=== PATIENT | female | born 1940 | race Two or more races ===

== ENCOUNTER 2021-07-01 00:17 | Inpatient (IN) | payer SELFPAY ==
[~2021-07-01] VITALS: Ht 162.6 cm; Wt 64.5 kg
[2021-07-01 00:37] LABS: BASO # 0.1 x10^3/uL (0.0-0.2); BASO % 1 % (0-3); EOS # 0.2 x10^3/uL (0.0-0.7); EOS % 2 % (0-3); HEMATOCRIT 40.2 % (36.0-47.0); HEMOGLOBIN 13.3 g/dL (12.0-15.5); LYMPH # 4.3 x10^3/uL (1.0-4.8); LYMPH % 41 % (24-48); MEAN CORPUSCULAR HEMOGLOBIN 27 pg (25-35); MEAN CORPUSCULAR HGB CONC 33 g/dL (31-37); MEAN CORPUSCULAR VOLUME 81 fL (79-100); MONO # 0.5 x10^3/uL (0.0-1.1); MONO % 5 % (0-9); NEUT # 5.3 x10^3/uL (1.8-7.7); NEUT % 51 % (31-73); PLATELET COUNT 419 x10^3/uL (140-400); RED BLOOD COUNT 4.99 x10^6/uL (3.50-5.40); RED CELL DISTRIBUTION WIDTH 13.8 % (11.5-14.5); WHITE BLOOD COUNT 10.4 x10^3/uL (4.0-11.0)
[2021-07-01 00:50] LABS: CALCIUM 8.8 mg/dL (8.5-10.1); CREATININE 0.7 mg/dL (0.6-1.0); GFR 80.9; POTASSIUM 3.7 mmol/L (3.5-5.1)
--- NOTE | 2021-07-01 00:52 | RAD ---
XR CHEST 1V 07/01/2021 12:27 AM INDICATION: Chest pain COMPARISON: None available TECHNIQUE: Portable frontal view of the chest is provided. FINDINGS: The cardiomediastinal silhouette is within normal limits. Lungs are clear. Mild chronic interstitial changes. There are no significant pleural effusions. There is no pulmonary vascular congestion. No pneumothora x. No suspicious osseous abnormality. IMPRESSION: There is no acute cardiopulmonary process. Mild chronic interstitial changes. Electronically signed by: Marion Arellano MD (07/01/2021 12:50 AM) TUYET
--- NOTE | 2021-07-01 00:54 | PHYS DOC ---
Past Medical History Past Medical History: Diabetes-Type II, High Cholesterol Past Surgical History: No Surgical History Smoking Status: Never Smoker Alcohol Use: None General Adult EDM: Chief Complaint: CHEST PAIN HPI: HPI: Patient is a 80 year old female who present to ER for evaluation of chest pain that radiated to her neck area started at 9 PM tonight. Patient also complained of some nausea, no headache, no cough, no fever, no trouble breathing. Patient is vaccinated for COVID-19 already. Patient denies any history of high blood pressure, no history of heart problem. Patient has history of high cholesterol and diabetic. Review of Systems: Review of Systems: Constitutional: Denies fever or chills. [] Eyes: Denies change in visual acuity. [] HENT: Denies nasal congestion or sore throat. [] Respiratory: Denies cough or shortness of breath. [] Cardiovascular: Positive for chest pain, no edema GI: Denies abdominal pain, nausea, vomiting, bloody stools or diarrhea. [] : Denies dysuria. [] Musculoskeletal: Denies back pain or joint pain. [] Integument: Denies rash. [] Neurologic: Denies headache, focal weakness or sensory changes. [] Endocrine: Denies polyuria or polydipsia. [] Lymphatic: Denies swollen glands. [] Psychiatric: Denies depression or anxiety. [] Heart Score: C/O Chest Pain: Yes HEART Score for Chest Pain: HEART Score for Chest Pain Response (Comments) Value History Moderately Suspicious 1 ECG Normal 0 Age > 65 2 Risk Factors 1 or 2 Risk Factors 1 Troponin < Normal Limit 0 Total 4 Risk Factors: Risk Factors: DM, Current or recent (<one month) smoker, HTN, HLP, family history of CAD, obesity. Risk Scores: Score 0 - 3: 2.5% MACE over next 6 weeks - Discharge Home Score 4 - 6: 20.3% MACE over next 6 weeks - Admit for Clinical Observation Score 7 - 10: 72.7% MACE over next 6 weeks - Early Invasive Strategies Physical Exam: PE: Constitutional: Well developed, well nourished, no acute distress, non-toxic appearance. [] HENT: Normocephalic, atraumatic, bilateral external ears normal, oropharynx moist, no oral exudates, nose normal. [] Eyes: PERRLA, EOMI, conjunctiva normal, no discharge. [] Neck: Normal range of motion, no tenderness, supple, no stridor. [] Cardiovascular:Heart rate regular rhythm, no murmur [] Lungs & Thorax: Bilateral breath sounds clear to auscultation [] Abdomen: Bowel sounds normal, soft, no tenderness, no masses, no pulsatile masses. [] Skin: Warm, dry, no erythema, no rash. [] Back: No tenderness, no CVA tenderness. [] Extremities: No tenderness, no cyanosis, no clubbing, ROM intact, no edema. [] Neurologic: Alert and oriented X 3, normal motor function, normal sensory function, no focal deficits noted. [] Psychologic: Affect normal, judgement normal, mood normal. [] Current Patient Data: Labs: Laboratory Tests Test 07/01/21 00:25 White Blood Count 10.4 x10^3/uL (4.0-11.0) Red Blood Count 4.99 x10^6/uL (3.50-5.40) Hemoglobin 13.3 g/dL (12.0-15.5) Hematocrit 40.2 % (36.0-47.0) Mean Corpuscular Volume 81 fL (79-100) Mean Corpuscular Hemoglobin 27 pg (25-35) Mean Corpuscular Hemoglobin Concent 33 g/dL (31-37) Red Cell Distribution Width 13.8 % (11.5-14.5) Platelet Count 419 x10^3/uL (140-400) H Neutrophils (%) (Auto) 51 % (31-73) Lymphocytes (%) (Auto) 41 % (24-48) Monocytes (%) (Auto) 5 % (0-9) Eosinophils (%) (Auto) 2 % (0-3) Basophils (%) (Auto) 1 % (0-3) Neutrophils # (Auto) 5.3 x10^3/uL (1.8-7.7) Lymphocytes # (Auto) 4.3 x10^3/uL (1.0-4.8) Monocytes # (Auto) 0.5 x10^3/uL (0.0-1.1) Eosinophils # (Auto) 0.2 x10^3/uL (0.0-0.7) Basophils # (Auto) 0.1 x10^3/uL (0.0-0.2) Laboratory Tests 07/01/21 00:25 EKG: EKG: EKG was done at 0026, rate of 71 bpm, sinus rhythm, no ST segment elevation, normal axis Radiology/Procedures: Radiology/Procedures: [] Course & Med Decision Making: Course & Med Decision Making Pertinent Labs and Imaging studies reviewed. (See chart for details) Patient is a 80-year-old female who present to ER due to chest pain and elevated blood pressure. Patient had no history of hypertension. Her EKG cardiac enzymes came back normal so far. Due to her risk factor patient will be admitted to hospital for further evaluation and treatment Dragon Disclaimer: Dragon Disclaimer: This electronic medical record was generated, in whole or in part, using a voice recognition dictation system. Departure Departure Impression: Primary Impression: Chest pain Additional Impression: Hypertension Disposition: ADMITTED INPATIENT Admitting Physician: KENIA (DR. [place]) Condition: IMPROVED Referrals: NO PCP (PCP) AMILCAR BERNABE DO Jul 01, 2021 00:53
[2021-07-01 00:55] LABS: ALBUMIN 3.7 g/dL (3.4-5.0); ALBUMIN/GLOBULIN RATIO 0.9 (1.0-1.7); MAGNESIUM 2.2 mg/dL (1.8-2.4); TOTAL BILIRUBIN 0.3 mg/dL (0.2-1.0); TOTAL PROTEIN 7.9 g/dL (6.4-8.2)
[2021-07-01] MEDS ORDERED: ONDANSETRON PF 4 MG/2 ML VIAL. IVP ONE (01:00)
[2021-07-01] MEDS ORDERED: METOPROLOL IV PUSH 5 MG/5 ML VIAL. IVP ONE (01:00)
[2021-07-01] MEDS ORDERED: ONDANSETRON PF 4 MG/2 ML VIAL. IVP PRN ×2 (02:45→08:45)
[2021-07-01 02:52] LABS: BILIRUBIN,URINE NEGATIVE (NEG); CLARITY,URINE CLOUDY; COLOR,URINE YELLOW; NITRITE,URINE NEGATIVE (NEG); PROTEIN,URINE NEGATIVE (NEG-TRACE); UROBILINOGEN,URINE 0.2 mg/dL (0.2 mg/dL)
[2021-07-01 03:00] LABS: AMORPHOUS SEDIMENT,UR PRESENT /HPF; BACTERIA,URINE 0 /HPF (0-FEW); RBC,URINE 0 /HPF (0-2)
--- NOTE | 2021-07-01 04:06 | EKG ---
[facility] [address] [place] [address] Test Date: 2021-07-01 Test Time: 00:26:55 Pat Name: MISA STALEY Department: Room: Gender: F Operations Professional: : 1940 Requested By: AMILCAR BERNABE Order Number: [id number] Reading MD: Yossi Amanda Measurements Intervals [place] Rate: 71 P: 58 SD: 156 QRS: 62 QRSD: 94 T: 36 QT: 380 QTc: 418 Interpretive Statements SINUS RHYTHM MILD NON SPECIFIC ST-T WAVE CHANGES Electronically Signed On 07-07-2021 10:35:04 EDGE BEADER by Yossi Amanda
[2021-07-01] MEDS ORDERED: METF500T16 PO (08:12)
--- NOTE | 2021-07-01 08:39 | PDOC1 ---
History and Physical Date of Service: DOS: DATE: 07/01/21 TIME: 08:36 Chief Complaint: Chief Complain: Chest pain. History of Present Illness: HPI: History obtained from discussion with the ED physician and chart review 80 year old female who present to ER for evaluation of chest pain that radiated to her neck area started at 9 PM tonight. Patient also complained of some nausea, no headache, no cough, no fever, no trouble breathing. Patient is vaccinated for COVID-19 already. Patient denies any history of high blood p ressure, no history of heart problem. Patient has history of high cholesterol and diabetic. Past Medical/Surgical History: PMH/PSH: Past Medical History: Diabetes-Type II, High Cholesterol Past Surgical History: No Surgical History Allergies: Allergies: Coded Allergies: No Known Drug Allergies (Unverified , 07/01/21) Family History: Family History: Reviewed with no relevant findings Social History: Social History: Smoking Status: Never Smoker Alcohol Use: None Current Medications: Current Medications Current Medications Ondansetron HCl (Zofran) 4 mg 1X ONCE IVP Last administered on 07/01/21at 01:19; Start 07/01/21 at 01:00; Stop 07/01/21 at 01:04; Status DC Metoprolol Tartrate (Lopressor Vial) 5 mg 1X ONCE IVP Last administered on 07/01/21at 01:19; Start 07/01/21 at 01:00; Stop 07/01/21 at 01:04; Status DC Ondansetron HCl (Zofran) 4 mg PRN Q8HRS PRN IVP NAUSEA/VOMITING; Start 07/01/21 at 02:45; Stop 07/02/21 at 02:44 Active Scripts Active Reported Metformin Hcl 500 Mg Tablet 500 Mg PO BIDWMEALS ROS: Review of Systems Review of System REVIEW OF SYSTEMS: GENERAL: Denies weakness SKIN: No bruising, hair changes or rashes. EYES: No blurred, double or loss of vision. NOSE AND THROAT: No history of nosebleeds, hoarseness or sore throat. HEART: Positive for chest pain LUNGS: Denies cough, hemoptysis, wheezing or shortness of breath. GASTROINTESTINAL: Denies changes in appetite, nausea, vomiting, diarrhea or constipation. GENITOURINARY: No history of frequency, urgency, hesitancy or nocturia. NEUROLOGIC: Denies history of numbness, tingling, or tremor. PSYCHIATRIC: No history of panic, anxiety or depression. ENDOCRINE: No history of heat or cold intolerance, polyuria or polydipsia. EXTREMITIES: Denies joint pain, pain on walking or stiffness. Physical Exam: Vital Signs: Vital Signs Date Time Temp Pulse Resp B/P (MAP) Pulse Ox O2 Delivery O2 Flow Rate FiO2 07/01/21 07:25 72 16 164/72 (102) 97 Room Air 07/01/21 00:24 98.6 98.6 Physcial Exam: General: Well developed, well nourished, no acute distress, well appearing HEENT: Pupils equally round and reactive to light, EOMI, no discharge, normal conjunctiva Neck: Supple, no nuchal rigidity, no JVD, trachea midline, no tenderness Cardiac: RRR, no murmurs, no gallops, no rubs Chest/Lungs: CTAB, no wheeze, no rhonchi, no crackles Abdomen: soft, non-distended, no guarding, no peritoneal signs, non-tender Back: No tenderness Extremities: no edema, pulses intact, non-tender,capillary refill <3 sec bilateral upper and lower extremities, Neuro: Alert and oriented x 4, no focal deficits, normal speech Labs: Labs: Laboratory Tests Test 07/01/21 00:25 07/01/21 02:46 07/01/21 03:44 07/01/21 06:35 White Blood Count 10.4 x10^3/uL (4.0-11.0) Red Blood Count 4.99 x10^6/uL (3.50-5.40) Hemoglobin 13.3 g/dL (12.0-15.5) Hematocrit 40.2 % (36.0-47.0) Mean Corpuscular Volume 81 fL (79-100) Mean Corpuscular Hemoglobin 27 pg (25-35) Mean Corpuscular Hemoglobin Concent 33 g/dL (31-37) Red Cell Distribution Width 13.8 % (11.5-14.5) Platelet Count 419 x10^3/uL (140-400) Neutrophils (%) (Auto) 51 % (31-73) Lymphocytes (%) (Auto) 41 % (24-48) Monocytes (%) (Auto) 5 % (0-9) Eosinophils (%) (Auto) 2 % (0-3) Basophils (%) (Auto) 1 % (0-3) Neutrophils # (Auto) 5.3 x10^3/uL (1.8-7.7) Lymphocytes # (Auto) 4.3 x10^3/uL (1.0-4.8) Monocytes # (Auto) 0.5 x10^3/uL (0.0-1.1) Eosinophils # (Auto) 0.2 x10^3/uL (0.0-0.7) Basophils # (Auto) 0.1 x10^3/uL (0.0-0.2) Sodium Level 138 mmol/L (136-145) Potassium Level 3.7 mmol/L (3.5-5.1) Chloride Level 99 mmol/L (98-107) Carbon Dioxide Level 30 mmol/L (21-32) Anion Gap 9 (6-14) Blood Urea Nitrogen 12 mg/dL (7-20) Creatinine 0.7 mg/dL (0.6-1.0) Estimated GFR (Cockcroft-Gault) 80.9 BUN/Creatinine Ratio 17 (6-20) Glucose Level 144 mg/dL (70-99) Calcium Level 8.8 mg/dL (8.5-10.1) Magnesium Level 2.2 mg/dL (1.8-2.4) Total Bilirubin 0.3 mg/dL (0.2-1.0) Aspartate Amino Transf (AST/SGOT) 15 U/L (15-37) Alanine Aminotransferase (ALT/SGPT) 32 U/L (14-59) Alkaline Phosphatase 91 U/L (46-116) Troponin I High Sensitivity 10 ng/L (4-50) 9 ng/L (4-50) 11 ng/L (4-50) KT-Zbw-X-Type Natriuretic Peptide 214 pg/mL (0-449) Total Protein 7.9 g/dL (6.4-8.2) Albumin 3.7 g/dL (3.4-5.0) Albumin/Globulin Ratio 0.9 (1.0-1.7) Lipase 71 U/L (73-393) Urine Collection Type Void Urine Color Yellow Urine Clarity Cloudy Urine pH 8.0 (<5.0-8.0) Urine Specific [place] 1.010 (1.000-1.030) Urine Protein Negative mg/dL (NEG-TRACE) Urine Glucose (UA) Negative mg/dL (NEG) Urine Ketones (Stick) Negative mg/dL (NEG) Urine Blood Negative (NEG) Urine Nitrite Negative (NEG) Urine Bilirubin Negative (NEG) Urine Urobilinogen Dipstick 0.2 mg/dL (0.2 mg/dL) Urine Leukocyte Esterase Small (NEG) Urine RBC 0 /HPF (0-2) Urine WBC 1-4 /HPF (0-4) Urine Squamous Epithelial Cells Few /LPF Urine Amorphous Sediment Present /HPF Urine Bacteria 0 /HPF (0-FEW) Urine Mucus Slight /LPF Laboratory Tests Test 07/01/21 00:25 07/01/21 02:46 07/01/21 03:44 07/01/21 06:35 White Blood Count 10.4 x10^3/uL (4.0-11.0) Red Blood Count 4.99 x10^6/uL (3.50-5.40) Hemoglobin 13.3 g/dL (12.0-15.5) Hematocrit 40.2 % (36.0-47.0) Mean Corpuscular Volume 81 fL (79-100) Mean Corpuscular Hemoglobin 27 pg (25-35) Mean Corpuscular Hemoglobin Concent 33 g/dL (31-37) Red Cell Distribution Width 13.8 % (11.5-14.5) Platelet Count 419 x10^3/uL (140-400) Neutrophils (%) (Auto) 51 % (31-73) Lymphocytes (%) (Auto) 41 % (24-48) Monocytes (%) (Auto) 5 % (0-9) Eosinophils (%) (Auto) 2 % (0-3) Basophils (%) (Auto) 1 % (0-3) Neutrophils # (Auto) 5.3 x10^3/uL (1.8-7.7) Lymphocytes # (Auto) 4.3 x10^3/uL (1.0-4.8) Monocytes # (Auto) 0.5 x10^3/uL (0.0-1.1) Eosinophils # (Auto) 0.2 x10^3/uL (0.0-0.7) Basophils # (Auto) 0.1 x10^3/uL (0.0-0.2) Sodium Level 138 mmol/L (136-145) Potassium Level 3.7 mmol/L (3.5-5.1) Chloride Level 99 mmol/L (98-107) Carbon Dioxide Level 30 mmol/L (21-32) Anion Gap 9 (6-14) Blood Urea Nitrogen 12 mg/dL (7-20) Creatinine 0.7 mg/dL (0.6-1.0) Estimated GFR (Cockcroft-Gault) 80.9 BUN/Creatinine Ratio 17 (6-20) Glucose Level 144 mg/dL (70-99) Calcium Level 8.8 mg/dL (8.5-10.1) Magnesium Level 2.2 mg/dL (1.8-2.4) Total Bilirubin 0.3 mg/dL (0.2-1.0) Aspartate Amino Transf (AST/SGOT) 15 U/L (15-37) Alanine Aminotransferase (ALT/SGPT) 32 U/L (14-59) Alkaline Phosphatase 91 U/L (46-116) Troponin I High Sensitivity 10 ng/L (4-50) 9 ng/L (4-50) 11 ng/L (4-50) KK-Rys-K-Type Natriuretic Peptide 214 pg/mL (0-449) Total Protein 7.9 g/dL (6.4-8.2) Albumin 3.7 g/dL (3.4-5.0) Albumin/Globulin Ratio 0.9 (1.0-1.7) Lipase 71 U/L (73-393) Urine Collection Type Void Urine Color Yellow Urine Clarity Cloudy Urine pH 8.0 (<5.0-8.0) Urine Specific [place] 1.010 (1.000-1.030) Urine Protein Negative mg/dL (NEG-TRACE) Urine Glucose (UA) Negative mg/dL (NEG) Urine Ketones (Stick) Negative mg/dL (NEG) Urine Blood Negative (NEG) Urine Nitrite Negative (NEG) Urine Bilirubin Negative (NEG) Urine Urobilinogen Dipstick 0.2 mg/dL (0.2 mg/dL) Urine Leukocyte Esterase Small (NEG) Urine RBC 0 /HPF (0-2) Urine WBC 1-4 /HPF (0-4) Urine Squamous Epithelial Cells Few /LPF Urine Amorphous Sediment Present /HPF Urine Bacteria 0 /HPF (0-FEW) Urine Mucus Slight /LPF Images: Images PROCEDURE: PORTABLE CHEST 1V XR CHEST 1V 07/01/2021 12:27 AM INDICATION: Chest pain COMPARISON: None available TECHNIQUE: Portable frontal view of the chest is provided. FINDINGS: The cardiomediastinal silhouette is within normal limits. Lungs are clear. Mild chronic interstitial changes. There are no significant pleural effusions. There is no pulmonary vascular congestion. No pneumothorax. No suspicious osseous abnormality. IMPRESSION: There is no acute cardiopulmonary process. Mild chronic interstitial changes. Assessment/Plan Assessment/Plan Chest pain concerning for unstable angina/NSTEMI Hypertensive urgency History of diabetes mellitus type 2 History of dyslipidemia EKG showing EKG was done at 0026, rate of 71 bpm, sinus rhythm, no ST segment elevation, normal axis Troponin negative x3 Continue aspirin, consider Plavix if intermediate risk will defer this to cardiology Cardiology consulted for predischarge stress testing or left heart cath Continue nitroglycerin as needed for pain Continue beta-jessenia if blood pressures allow Continue high intensity statins IV morphine as needed Consider Lovenox Maintain O2 sats between 88 to 95% Trend troponins Repeat EKG in the a.m. Continue telemetry monitoring Monitor for electrolyte abnormalities Avoid NSAIDs We will start patient on lisinopril, HCTZ In addition to my E/M visit, advance care planning done with A total time of 20 minutes was spent from 8:00 to 820 face to face in discussion regarding the patient's goals of care, CODE STATUS. Justifications for Admission Other Justification FAREED PONCE MD Jul 01, 2021 08:39
[2021-07-01] MEDS ORDERED: PROCHLORPERAZINE 10 MG/2 ML VIAL. IV PRN (08:45)
[2021-07-01] MEDS ORDERED: ACETAMINOPHEN 325 MG TABLET. PO PRN (08:45)
[2021-07-01] MEDS ORDERED: ZOLPIDEM 5 MG TABLET. PO PRN (08:45)
[2021-07-01] MEDS ORDERED: DEXTROSE 50% 25 GM / 50ML DISP.SYRIN. IV PRN (08:45)
[2021-07-01] MEDS ORDERED: LORazepam 0.5 MG TABLET PO PRN (08:45)
[2021-07-01] MEDS ORDERED: DOCUSATE SODIUM 100 MG CAPSULE. PO PRN (08:45)
[2021-07-01] MEDS ORDERED: SENNOSIDES 8.6 MG TABLET PO PRN (08:45)
[2021-07-01 08:56] LABS: CHOLESTEROL/HDL RATIO 2.7
[2021-07-01] MEDS ORDERED: ENOXAPARIN 40 MG/0.4 ML SYRINGE. SQ SCH (09:00)
[2021-07-01] MEDS ORDERED: LIDO:MAALOX 1:1 20 ML SINGLE DOSE. PO PRN (09:15)
--- NOTE | 2021-07-01 09:53 | PDOC2 ---
PARAG BLAS SHIPPER/RECEIVER 07/01/21 0953: CARDIAC CONSULT DATE OF CONSULT Date of Consult DATE: 07/01/21 TIME: 09:39 REASON FOR CONSULT Reason for Consult: Chest pain, HTN REFERRING PHYSICIAN Referring Physician: Aiden SOURCE Source: Chart review, Patient HISTORY OF PRESENT ILLNESS HISTORY OF PRESENT ILLNESS This is a pleasant 80 yo female admitted for complains of constipation and high blood ressure. She was at her PCPs office yesterday complaining of abdominal pain and constipation and was noted with high BP with SBP>180. She has been having heartburn and complains of epigastric tenderness. No PARADA or exertional chest pain and no changes to her functional status.She does have occasional palpitations otherwise no dizziness. She has had nausea and her epigastric tenderness is easily reproducible with palpation. Her BP is better. No complains of chest pain or SOA. She is vaccinated for covid-19. No hx of VTE, CAD, arrhythmia. PAST MEDICAL HISTORY Cardiovascular: Hyperlipidemia Pulmonary: No pertinent hx CENTRAL NERVOUS SYSTEM: Other (No pertinent history) GI: Irritable bowel disease Heme/Onc: No pertinent hx Hepatobiliary: No pertinent hx Psych: No pertinent hx Musculoskeletal: Osteoarthritis Rheumatologic: No pertinent hx Infectious disease: No pertinent hx ENT: No pertinent hx Renal/: Urinary Incontinence Endocrine: Diabetes (2) Dermatology: No pertinent hx PAST SURGICAL HISTORY Past Surgical History: Cholecystectomy FAMILY HISTORY Family History noncontributory SOCIAL HISTORY Smoke: No ALCOHOL: none Drugs: None Lives: with Family CURRENT MEDICATIONS CURRENT MEDICATIONS Current Medications Medications (Trade) Dose Ordered Sig/Sharonda Route PRN Reason Start Time Stop Time Status Last Admin Dose Admin Ondansetron HCl (Zofran) 4 mg 1X ONCE IVP 07/01/21 01:00 07/01/21 01:04 DC 07/01/21 01:19 Metoprolol Tartrate (Lopressor Vial) 5 mg 1X ONCE IVP 07/01/21 01:00 07/01/21 01:04 DC 07/01/21 01:19 ALLERGIES ALLERGIES: Coded Allergies: No Known Drug Allergies (Unverified , 07/01/21) ROS Review of System 14 point ROS evaluated with pertinent positives noted per HPI PHYSICAL EXAM General: Alert, Oriented X3, Cooperative, No acute distress HEENT: Atraumatic, Mucous membr. moist/pink Lungs: Clear to auscultation, Normal air movement Heart: Regular rate (SR), Normal S1, Normal S2, No murmurs Abdomen: Soft, No tenderness Extremities: No cyanosis, No edema Skin: No breakdown, No significant lesion Neuro: Normal speech, Sensation intact Psych/Mental Status: Mental status NL, Mood NL MUSCULOSKELETAL: Osteoarthritic changes both hands VITALS/I&O VITALS/I&O: Vital Signs Date Time Temp Pulse Resp B/P (MAP) Pulse Ox O2 Delivery O2 Flow Rate FiO2 07/01/21 07:25 72 16 164/72 (102) 97 Room Air 07/01/21 00:24 98.6 98.6 LABS Lab: Laboratory Tests Test 07/01/21 00:25 07/01/21 02:46 07/01/21 03:44 07/01/21 06:35 White Blood Count 10.4 x10^3/uL (4.0-11.0) Red Blood Count 4.99 x10^6/uL (3.50-5.40) Hemoglobin 13.3 g/dL (12.0-15.5) Hematocrit 40.2 % (36.0-47.0) Mean Corpuscular Volume 81 fL (79-100) Mean Corpuscular Hemoglobin 27 pg (25-35) Mean Corpuscular Hemoglobin Concent 33 g/dL (31-37) Red Cell Distribution Width 13.8 % (11.5-14.5) Platelet Count 419 x10^3/uL (140-400) H Neutrophils (%) (Auto) 51 % (31-73) Lymphocytes (%) (Auto) 41 % (24-48) Monocytes (%) (Auto) 5 % (0-9) Eosinophils (%) (Auto) 2 % (0-3) Basophils (%) (Auto) 1 % (0-3) Neutrophils # (Auto) 5.3 x10^3/uL (1.8-7.7) Lymphocytes # (Auto) 4.3 x10^3/uL (1.0-4.8) Monocytes # (Auto) 0.5 x10^3/uL (0.0-1.1) Eosinophils # (Auto) 0.2 x10^3/uL (0.0-0.7) Basophils # (Auto) 0.1 x10^3/uL (0.0-0.2) Sodium Level 138 mmol/L (136-145) Potassium Level 3.7 mmol/L (3.5-5.1) Chloride Level 99 mmol/L (98-107) Carbon Dioxide Level 30 mmol/L (21-32) Anion Gap 9 (6-14) Blood Urea Nitrogen 12 mg/dL (7-20) Creatinine 0.7 mg/dL (0.6-1.0) Estimated GFR (Cockcroft-Gault) 80.9 BUN/Creatinine Ratio 17 (6-20) Glucose Level 144 mg/dL (70-99) H Calcium Level 8.8 mg/dL (8.5-10.1) Magnesium Level 2.2 mg/dL (1.8-2.4) Total Bilirubin 0.3 mg/dL (0.2-1.0) Aspartate Amino Transferase (AST) 15 U/L (15-37) Alanine Aminotransferase (ALT) 32 U/L (14-59) Alkaline Phosphatase 91 U/L (46-116) Troponin I High Sensitivity 10 ng/L (4-50) 9 ng/L (4-50) 11 ng/L (4-50) BU-Zsb-O-Type Natriuretic Peptide 214 pg/mL (0-449) Total Protein 7.9 g/dL (6.4-8.2) Albumin 3.7 g/dL (3.4-5.0) Albumin/Globulin Ratio 0.9 (1.0-1.7) L Lipase 71 U/L (73-393) L Urine Collection Type Void Urine Color Yellow Urine Clarity Cloudy Urine pH 8.0 (<5.0-8.0) Urine Specific [place] 1.010 (1.000-1.030) Urine Protein Negative mg/dL (NEG-TRACE) Urine Glucose (UA) Negative mg/dL (NEG) Urine Ketones (Stick) Negative mg/dL (NEG) Urine Blood Negative (NEG) Urine Nitrite Negative (NEG) Urine Bilirubin Negative (NEG) Urine Urobilinogen Dipstick 0.2 mg/dL (0.2 mg/dL) Urine Leukocyte Esterase Small (NEG) Urine RBC 0 /HPF (0-2) Urine WBC 1-4 /HPF (0-4) Urine Squamous Epithelial Cells Few /LPF Urine Amorphous Sediment Present /HPF Urine Bacteria 0 /HPF (0-FEW) Urine Mucus Slight /LPF Triglycerides Level 79 mg/dL (0-150) Cholesterol Level 203 mg/dL (0-200) H LDL Cholesterol, Calculated 113 mg/dL (0-100) H VLDL Cholesterol, Calculated 16 mg/dL (0-40) Non-HDL Cholesterol Calculated 129 mg/dL (0-129) HDL Cholesterol 74 mg/dL (40-60) H Cholesterol/HDL Ratio 2.7 Laboratory Tests 07/01/21 00:25 Laboratory Tests 07/01/21 00:25 ASSESSMENT/PLAN ASSESSMENT/PLAN 1. Atypical CP: GI related 2. HTN urgency: improving 3. HLP: has Rx needing to fill 4. DM2: per PCP Recommendations 1. Start on PPI 2. Start on lisinopril/HCTZ. HBPM 3. May DC from cardiac perspective MARICRUZ JUNG MD 07/01/212146: CARDIAC CONSULT ASSESSMENT/PLAN ASSESSMENT/PLAN Pt. seen and examined,. Agree with above GOLD MARKER note. Patient likely has diabetic gastroparesis. She nonetheless needs outpt stress testing for her epigastric pain and multiple risk factors. Discussed with pt and family. Thanks PARAG BLAS SHIPPER/RECEIVER Jul 01, 2021 09:53 MARICRUZ JUNG MD Jul 01, 2021 21:47
[2021-07-01] MEDS ORDERED: hydroCHLOROthiazide 12.5 MG CAPSULE PO SCH (10:00)
[2021-07-01] MEDS ORDERED: FAMOTIDINE 20 MG TABLET. PO SCH ×2 (10:00)
[2021-07-01] MEDS ORDERED: LISINOPRIL 20 MG TABLET PO SCH (10:00)
[2021-07-01] MEDS ORDERED: PANTOPRAZOLE 40 MG TABLET.DR. PO ONE (10:00)
[2021-07-01] MEDS ORDERED: INSULIN LISPRO 300 UNITS/3 ML VIAL. SQ SCH (12:00)
[2021-07-01] MEDS ORDERED: HYDR12.575 PO (12:30)
[2021-07-01] MEDS ORDERED: LISI-130 PO (12:30)
[2021-07-01] MEDS ORDERED: PANT40TA77 PO (12:30)
--- NOTE | 2021-07-01 12:32 | DISCH ---
DISCHARGE INSTRUCTIONS Condition on Discharge Condition on Discharge: Stable Activity After Discharge Activity Instructions for Disc: Activity as tolerated Lifting Instructions after Dis: Do not lift >10 pounds Exercise Instruction after Dis: Walk 15 min, 3 x per day Driving Instructions after Dis: Do not drive today Diet after Discharge Diet after Discharge: Cardiac, Diabetic No Calorie Level Follow-Up Follow up with: PCP within 2 weeks of discharge Follow Up With: Cardiology as needed FAREED PONCE MD Jul 01, 2021 12:32
[2021-07-01 12:53] VITALS: BP 129/60
--- NOTE | 2021-07-01 15:11 | PDOC3 ---
[facility]-Discharge Summary Date of Admission: Date of Admission: Jul 01, 2021 Date of Discharge: Date of Discharge: Jul 01, 2021 Discharge Diagnosis: Discharge Diagnosis: Chest pain concerning for unstable angina/NSTEMI Hypertensive urgency History of diabetes mellitus type 2 History of dyslipidemia Hospital Course: Hospital Course: 80 year old female who present to ER for evaluation of chest pain that radiated to her neck area started at 9 PM tonight. Patient also complained of some robert sea, no headache, no cough, no fever, no trouble breathing. Patient is vaccinated for COVID-19 already. Patient denies any history of high blood pressure, no history of heart problem. Patient has history of high cholesterol and diabetic. Patient seen and evaluate by cardiology and recommended to start on antihypertensive medications which includes lisinopril and hydrochlorothiazide. Also to treat for reflux disease with PPI. Blood pressure was controlled by reducing systolic blood pressures down to 25% at least. Systolic blood pressure at time of discharge was 160s. Explained to family the patient to adhere to antihypertensive regimen before discharge PCP. Rest of hospital course was uneventful Disposition: Disposition/Orders: D/C to Home Activity: Activity: Resume previous activity Diet: Diet: Cardiac, Consistent Carbohydrate Medications: Home Meds Active Scripts Pantoprazole Sodium (PANTOPRAZOLE SODIUM ) 40 Mg Tablet.dr, 40 MG PO DAILYAC for GERD for 30 Days, #30 TAB.SR 2 Refills Prov:FAREED PONCE MD 07/01/21 Hydrochlorothiazide (HYDROCHLOROTHIAZIDE CAPSULE ) 12.5 Mg Capsule, 12.5 MG PO DAILY for blood pressure for 30 Days, #30 CAP 2 Refills Prov:FAREED PONCE MD 07/01/21 Lisinopril (LISINOPRIL) 40 Mg Tablet, 20 MG PO DAILY for blood pressure for 30 Days, #15 TAB 2 Refills Prov:FAREED PONCE MD 07/01/21 Reported Medications Metformin Hcl (METFORMIN HCL) 500 Mg Tablet, 500 MG PO BIDWMEALS for ANTI- DIABETIC, TAB 0 Refills 07/01/21 Scheduled Hydrochlorothiazide (Hydrochlorothiazide Capsule ), 12.5 MG PO DAILY Lisinopril (Lisinopril), 20 MG PO DAILY Metformin Hcl (Metformin Hcl), 500 MG PO BIDWMEALS, (Reported) Pantoprazole Sodium (Pantoprazole Sodium ), 40 MG PO DAILYAC Total Time: Total Time: Total time spent was 31 minutes in preparing scripts, discharge planning with SWI and RN and preparing this discharge summary Patient seen and examined on day of discharge. No acute abnormal findings. Justicifation of Admission Dx: Justifications for Admission: Justification of Admission Dx: Yes Hypertension: New-Onset FAREED PONCE MD Jul 01, 2021 15:10
[2021-07-02] MEDS ORDERED: PANTOPRAZOLE 40 MG TABLET.DR. PO SCH (07:30)
== END 2021-07-01 17:00 | disposition home or self-care (01) | DRG 305 ==
LOC: ER 00:17 → ED HOLD 02:34
PROVIDERS: ADMIT Internal Medicine; ATTEND Internal Medicine
DX: I16.0 Hypertensive urgency (principal); K21.9 Gastro-esophageal reflux disease without esophagitis; E78.5 Hyperlipidemia, unspecified; E78.00 Pure hypercholesterolemia, unspecified; I10 Essential (primary) hypertension; K58.9 Irritable bowel syndrome, unspecified; M19.90 Unspecified osteoarthritis, unspecified site; E11.9 Type 2 diabetes mellitus without complications; Z90.49 Acquired absence of other specified parts of digestive tract
CPT/HCPCS: 36415; 71045; 80053; 80061; 81001; 83690; 83735; 83880; 84484; 85025; 87086; 93005; 96374; 96375; J2405; J3490; 99285-25

== ENCOUNTER 2021-07-16 02:10 | Observation (INO) | payer SELFPAY ==
[~2021-07-16] VITALS: Ht 157.5 cm; Wt 65.5 kg
[~2021-07-16 02:10] MED LIST: HYDR12.575 PO; LISI-130 PO; METF500T16 PO; PANT40TA77 PO
--- NOTE | 2021-07-16 03:12 | ED.ADGEN ---
Past Medical History Past Medical History: Diabetes-Type II, High Cholesterol Past Surgical History: No Surgical History Smoking Status: Never Smoker Alcohol Use: None General Adult EDM: Chief Complaint: HYPERTENSION HPI: HPI: Patient is a 80 year old female brought in by family for emesis, burning chest pain, abdominal pain and bloating and hypertension started about 3 hours prior to arrival. Patient has a baseline history of hypertension is taking lisinopril hydrochlorothiazide. Also has a history of GERD and is taking a PPI. Patient's family states she has been compliant with her medications. He denied raw or undercooked food, recent travel, or any sick contacts. Patient is fully vaccinated against COVID-19. Patient has similar presentation 3 weeks ago where she was seen and admitted to this hospital. Review of Systems: Review of Systems: All other systems within normal limits except for as noted in the HPI Current Medications: Current Medications Medications (Trade) Dose Ordered Sig/Sharonda Start Time Stop Time Status Last Admin Dose Admin Multi-Ingredient Mouthwash/Gargle (Gi Cocktail) 20 ml 1X ONCE 07/16/21 03:15 07/16/21 03:16 DC 07/16/21 03:57 20 ML Ondansetron HCl (Zofran) 4 mg 1X ONCE 07/16/21 03:15 07/16/21 03:16 DC 07/16/21 03:52 4 MG Sodium Chloride 500 ml @ 500 mls/hr 1X ONCE 07/16/21 03:15 07/16/21 04:14 DC 07/16/21 03:59 500 MLS/HR Allergies: Allergies: Allergies Coded Allergies Type Severity Reaction Last Updated Verified No Known Drug Allergies 07/01/21 No Physical Exam: PE: Constitutional: Well developed, well nourished, no acute distress, non-toxic a ppearance. [] HENT: Normocephalic, atraumatic, bilateral external ears normal, nose normal. [] Eyes: PERRLA, conjunctiva normal, no discharge. [] Neck: No rigidity, supple, no stridor. [] Cardiovascular: Regular rate and rhythm, brisk cap refill [] Lungs & Thorax: Non labored symmetric respirations, no tachypnea or respiratory distress [] Abdomen: Soft, nondistended, no guarding to palpation Skin: Warm, dry, no erythema, no rash. [] Back: Unremarkable Extremities: No deformities, range of motion grossly intact, no lower extremity edema [] Neurologic: Alert and oriented X 3, no focal deficits noted. [] Psychologic: Affect normal, judgement normal, mood normal. [] Current Patient Data: Labs: Laboratory Tests Test 07/16/21 03:45 07/16/21 04:10 White Blood Count 9.3 x10^3/uL (4.0-11.0) Red Blood Count 4.56 x10^6/uL (3.50-5.40) Hemoglobin 12.3 g/dL (12.0-15.5) Hematocrit 36.4 % (36.0-47.0) Mean Corpuscular Volume 80 fL (79-100) Mean Corpuscular Hemoglobin 27 pg (25-35) Mean Corpuscular Hemoglobin Concent 34 g/dL (31-37) Red Cell Distribution Width 13.8 % (11.5-14.5) Platelet Count 406 x10^3/uL (140-400) H Neutrophils (%) (Auto) 83 % (31-73) H Lymphocytes (%) (Auto) 14 % (24-48) L Monocytes (%) (Auto) 3 % (0-9) Eosinophils (%) (Auto) 0 % (0-3) Basophils (%) (Auto) 1 % (0-3) Neutrophils # (Auto) 7.7 x10^3/uL (1.8-7.7) Lymphocytes # (Auto) 1.3 x10^3/uL (1.0-4.8) Monocytes # (Auto) 0.2 x10^3/uL (0.0-1.1) Eosinophils # (Auto) 0.0 x10^3/uL (0.0-0.7) Basophils # (Auto) 0.1 x10^3/uL (0.0-0.2) Sodium Level 124 mmol/L (136-145) L Potassium Level 3.7 mmol/L (3.5-5.1) Chloride Level 91 mmol/L (98-107) L Carbon Dioxide Level 25 mmol/L (21-32) Anion Gap 8 (6-14) Blood Urea Nitrogen 17 mg/dL (7-20) Creatinine 0.8 mg/dL (0.6-1.0) Estimated GFR (Cockcroft-Gault) 69.4 BUN/Creatinine Ratio 21 (6-20) H Glucose Level 213 mg/dL (70-99) H Lactic Acid Level 1.5 mmol/L (0.4-2.0) Calcium Level 8.9 mg/dL (8.5-10.1) Total Bilirubin 0.4 mg/dL (0.2-1.0) Aspartate Amino Transferase (AST) 15 U/L (15-37) Alanine Aminotransferase (ALT) 24 U/L (14-59) Alkaline Phosphatase 91 U/L (46-116) Troponin I High Sensitivity 9 ng/L (4-50) Total Protein 7.2 g/dL (6.4-8.2) Albumin 3.5 g/dL (3.4-5.0) Albumin/Globulin Ratio 0.9 (1.0-1.7) L Lipase 82 U/L (73-393) Urine Collection Type Unknown Urine Color Yellow Urine Clarity Cloudy Urine pH 8.0 (<5.0-8.0) Urine Specific [place] 1.015 (1.000-1.030) Urine Protein Negative mg/dL (NEG-TRACE) Urine Glucose (UA) Negative mg/dL (NEG) Urine Ketones (Stick) 15 mg/dL (NEG) Urine Blood Negative (NEG) Urine Nitrite Negative (NEG) Urine Bilirubin Negative (NEG) Urine Urobilinogen Dipstick 0.2 mg/dL (0.2 mg/dL) Urine Leukocyte Esterase Small (NEG) Urine RBC 0 /HPF (0-2) Urine WBC 5-10 /HPF (0-4) Urine Squamous Epithelial Cells Few /LPF Urine Amorphous Sediment Present /HPF Urine Bacteria Few /HPF (0-FEW) Urine Mucus Slight /LPF Laboratory Tests 07/16/21 03:45 Laboratory Tests 07/16/21 03:45 Vital Signs: Vital Signs Date Time Temp Pulse Resp B/P (MAP) Pulse Ox O2 Delivery O2 Flow Rate FiO2 07/16/21 04:23 76 23 167/74 (105) 97 Room Air 07/16/21 02:55 98.1 98.1 EKG: EKG: [] Heart Score: C/O Chest Pain: Yes HEART Score for Chest Pain: HEART Score for Chest Pain Response (Comments) Value History Slighlty/Non-Suspicious 0 ECG Nonspecific Repolarizatio 1 Age > 65 2 Risk Factors 1 or 2 Risk Factors 1 Troponin < Normal Limit 0 Total 4 Risk Factors: Risk Factors: DM, Current or recent (<one month) smoker, HTN, HLP, family history of CAD, obesity. Risk Scores: Score 0 - 3: 2.5% MACE over next 6 weeks - Discharge Home Score 4 - 6: 20.3% MACE over next 6 weeks - Admit for Clinical Observation Score 7 - 10: 72.7% MACE over next 6 weeks - Early Invasive Strategies Radiology/Procedures: Radiology/Procedures: [facility] [address] [place] [address] IMAGING REPORT Signed PATIENT: MISA STALEY ACCOUNT: [id number] : 1940 LOCATION: ER AGE: 80 SEX: F EXAM STATUS: PRE ER ORD. PHYSICIAN: WON ALEJANDRE MD REASON: chest pain, emesis PROCEDURE: CHEST PA & LATERAL XR CHEST 2V Technique: PA and lateral views of the chest were obtained. Clinical History: Reason: chest pain, emesis / Spl. Instructions: / History: Comparison: July 01, 2021. Findings: The heart and pulmonary vasculature appear within normal limits. The lungs are clear. The pleural margins are clear. Impression: No acute chest process is seen. Electronically signed by: Marci Montenegro III, MD (07/16/2021 3:49 AM) [facility] DICTATED and SIGNED BY: MARCI MONTENEGRO III, MD DATE: 07/16/21 [id number] [] Course & Med Decision Making: Course & Med Decision Making Sodium still abnormally low when corrected for glucose, likely secondary to hydrochlorothiazide use. Patient still is hypertensive, will admit to hospitalist for sodium replacement and blood pressure management. Dragon Disclaimer: Dragon Disclaimer: This electronic medical record was generated, in whole or in part, using a voice recognition dictation system. Departure Departure Impression: Primary Impression: Hyponatremia Additional Impression: Hypertension, uncontrolled Disposition: ADMITTED INPATIENT Admitting Physician: HIMS Condition: STABLE Referrals: NO PCP (PCP) Problem Qualifiers WON ALEJANDRE MD Jul 16, 2021 03:12
[2021-07-16] MEDS ORDERED: ONDANSETRON PF 4 MG/2 ML VIAL. IVP ONE (03:15)
[2021-07-16] MEDS ORDERED: IV NORMAL SALINE 500ML BAG 500 ML IV ONE (03:15)
[2021-07-16] MEDS ORDERED: LIDO:MAALOX 1:1 20 ML SINGLE DOSE. SWSW ONE (03:15)
--- NOTE | 2021-07-16 03:51 | RAD ---
XR CHEST 2V Technique: PA and lateral views of the chest were obtained. Clinical History: Reason: chest pain, emesis / Spl. Instructions: / History: Comparison: July 01, 2021. Findings: The heart and pulmonary vasculature appear within normal limits. The lungs are clear. The pleural ma rgins are clear. Impression: No acute chest process is seen. Electronically signed by: Robert Montenegro III, MD (07/16/2021 3:49 AM) [facility]
[2021-07-16 04:07] LABS: BASO # 0.1 x10^3/uL (0.0-0.2); BASO % 1 % (0-3); EOS % 0 % (0-3); HEMATOCRIT 36.4 % (36.0-47.0); HEMOGLOBIN 12.3 g/dL (12.0-15.5); LYMPH # 1.3 x10^3/uL (1.0-4.8); LYMPH % 14 % (24-48); MEAN CORPUSCULAR HEMOGLOBIN 27 pg (25-35); MEAN CORPUSCULAR HGB CONC 34 g/dL (31-37); MEAN CORPUSCULAR VOLUME 80 fL (79-100); MONO # 0.2 x10^3/uL (0.0-1.1); MONO % 3 % (0-9); NEUT # 7.7 x10^3/uL (1.8-7.7); NEUT % 83 % (31-73); PLATELET COUNT 406 x10^3/uL (140-400); RED BLOOD COUNT 4.56 x10^6/uL (3.50-5.40); RED CELL DISTRIBUTION WIDTH 13.8 % (11.5-14.5); WHITE BLOOD COUNT 9.3 x10^3/uL (4.0-11.0)
[2021-07-16 04:17] LABS: CALCIUM 8.9 mg/dL (8.5-10.1); CREATININE 0.8 mg/dL (0.6-1.0); GFR 69.4; POTASSIUM 3.7 mmol/L (3.5-5.1)
[2021-07-16 04:19] LABS: BILIRUBIN,URINE NEGATIVE (NEG); CLARITY,URINE CLOUDY; COLOR,URINE YELLOW; NITRITE,URINE NEGATIVE (NEG); PROTEIN,URINE NEGATIVE (NEG-TRACE); UROBILINOGEN,URINE 0.2 mg/dL (0.2 mg/dL)
[2021-07-16 04:24] LABS: ALBUMIN 3.5 g/dL (3.4-5.0); ALBUMIN/GLOBULIN RATIO 0.9 (1.0-1.7); TOTAL BILIRUBIN 0.4 mg/dL (0.2-1.0); TOTAL PROTEIN 7.2 g/dL (6.4-8.2)
[2021-07-16 04:29] LABS: AMORPHOUS SEDIMENT,UR PRESENT /HPF; BACTERIA,URINE FEW /HPF (0-FEW); RBC,URINE 0 /HPF (0-2)
[2021-07-16] MEDS ORDERED: ACETAMINOPHEN 325 MG TABLET. PO PRN (04:45)
[2021-07-16] MEDS ORDERED: ONDANSETRON PF 4 MG/2 ML VIAL. IVP PRN (04:45)
--- NOTE | 2021-07-16 06:07 | EKG ---
[facility] [address] [place] [address] Test Date: 2021-07-16 Test Time: 03:41:28 Pat Name: MISA STALEY Department: Room: ED HOLD 23 Gender: F Speech Language Pathologist Travel: : 1940 Requested By: WON ALEJANDRE Order Number: [id number] Reading MD: Ryan Shaikh Measurements Intervals Rodman Rate: 78 P: 56 FL: 148 QRS: 43 QRSD: 102 T: 28 QT: 394 QTc: 453 Interpretive Statements SINUS RHYTHM NORMAL ECG RI6.02 Compared to ECG 07/01/2021 00:26:55 No significant changes Electronically Signed On 07-20-2021 9:30:45 FILTROSE CRUSHER by Ryan Shaikh
[2021-07-16] MEDS ORDERED: SIMV40TA18 PO (06:30)
[2021-07-16] MEDS ORDERED: LINZESS145 MCG PO (06:30)
[2021-07-16] MEDS: IV NORMAL SALINE 1000ML BAG 1,000 ML IV SCH ×2 (06:48→16:53)
[2021-07-16 07:00] VITALS: BP 166/75
--- NOTE | 2021-07-16 07:50 | HP ---
DATE OF SERVICE: 07/16/2021 ADMIT DATE: 07/16/2021 CHIEF COMPLAINT: Chest discomfort, emesis, abdominal pain, bloating, elevated blood pressure. HISTORY OF PRESENT ILLNESS: The patient is a pleasant 80-year-old female who presented to the ER with some abdominal pain, bloating and chest discomfort for about 3 hours prior to arrival. She is fully vaccinated. While in the ER, we noticed that her blood pressure is quite high at 172/74. She also has hyponatremia with a sodium of 124 and UTI. The patient has been admitted for IV fluids, antihypertensives and IV antibiotics. PAST MEDICAL HISTORY: Noncompliance, hypertension, diabetes, hyperlipidemia. ALLERGIES: None. FAMILY HISTORY: Diabetes. SOCIAL HISTORY: She does not drink, smoke or take drugs. MEDICATIONS: Reviewed, please refer to the MRAD. REVIEW OF SYSTEMS: GENERAL: She complains of weakness. SKIN: No bruising, hair changes or rashes. EYES: No blurred, double or loss of vision. NOSE AND THROAT: No history of nosebleeds, hoarseness or sore throat. CARDIAC: She complains of chest pain. LUNGS: Denies cough, hemoptysis, wheezing or shortness of breath. GASTROINTESTINAL: She complains of abdominal pain. GENITOURINARY: No history of frequency, urgency, hesitancy or nocturia. NEUROLOGIC: Denies history of numbness, tingling, tremor or weakness. PSYCHIATRIC: No history of panic, anxiety or depression. ENDOCRINE: No history of heat or cold intolerance, polyuria or polydipsia. EXTREMITIES: Denies muscle weakness, joint pain, pain on walking or stiffness. PHYSICAL EXAMINATION: VITALS: Within normal limits and are stable. GENERAL: No apparent distress. Alert and oriented. HEENT: Normal cephalic atraumatic, external auditory canals are patent EYES: Extraocular muscles are intact, pupils are equally round and reactive to light and accommodation MUSCULOSKELETAL: Well developed, well nourished, good range of motion ENDOCRINE: No thyromegaly was palpated LYMPHATICS: No cervical chain or axillary nodes were noted HEMATOPOIETIC: No bruising NECK: Supple, no JVD, no thyromegaly was noted. LUNGS: Clear to auscultation in all lung baltazar without rhonchi or wheezing. HEART: RRR, S1, S2 present. Peripheral pulses intact, no obvious murmurs were noted. ABDOMEN: Soft, nontender. Positive bowel sounds no organomegaly, normal bowel sounds. EXTREMITIES: Without any cyanosis, clubbing, or edema. Pedal pulses intact, Homans sign is negative. NEUROLOGIC: Normal speech, normal tone. A and O x 3, moves all extremities, no obvious focal deficits. PSYCHIATRIC: Normal affect, normal mood. Stable. SKIN: No ulcerations or rashes, good skin turgor, no jaundice. VASCULAR: Good capillary refill, neurovascular bundle appears to be intact. LABORATORY DATA: Urinalysis shows small amount of leukocyte esterase and 5-10 white cells. Sodium is 124. Hematology is normal. ASSESSMENT AND PLAN: Urinary tract infection, hyponatremia, gastrointestinal symptoms. The patient has been admitted. We will start IV antibiotics, IV fluids, trend her labs. Home meds. Deep venous thrombosis prophylaxis. Full code. SUKHJINDER DR: David TID: [id number]
[2021-07-16] MEDS: MORPHINE SULFATE 2 MG/ML INJ. IVP PRN ×2 (08:43→11:50)
[2021-07-16] MEDS: cefTRIAXone IV Push 1 GM VIAL. IVP SCH (08:43)
[2021-07-16 11:00] VITALS: BP 159/61
[2021-07-16] MEDS: hydroCHLOROthiazide 12.5 MG CAPSULE PO SCH (11:50)
[2021-07-16] MEDS: LUBIPROSTONE 24 MCG CAPSULE PO SCH ×2 (11:50→16:53)
[2021-07-16] MEDS: PANTOPRAZOLE 40 MG TABLET.DR. PO SCH (11:50)
[2021-07-16] MEDS: LISINOPRIL 20 MG TABLET PO SCH (11:50)
[2021-07-16] MEDS: metFORMIN 500 MG TABLET PO SCH ×2 (11:50→16:53)
[2021-07-16 15:00] VITALS: BP 163/72
--- NOTE | 2021-07-16 15:59 | NUR ---
SS following for discharge planning. SS reviewed pt chart and discussed with pt RN. Pt is from home and is currently on room air. Pt on IV Rocephin. Self pay. Med Assist following. SS will continue to follow for discharge planning.
[2021-07-16 19:46] VITALS: BP 164/79
--- NOTE | 2021-07-16 20:00 | NUR ---
Assessment completed,VS stable, POC explained to pt. Pt complained of abdominal pain. Will medicate pt. and continue to monitor pt.
[2021-07-16] MEDS ORDERED: SIMVASTATIN 40 MG TABLET. PO SCH (21:00)
[2021-07-16 22:48] VITALS: BP 180/83
[2021-07-16 23:27] VITALS: BP 148/59
[2021-07-17 02:50] VITALS: BP 119/52
[2021-07-17] MEDS: cefTRIAXone IV Push 1 GM VIAL. IVP SCH (05:39)
[2021-07-17] MEDS: PANTOPRAZOLE 40 MG TABLET.DR. PO SCH (05:39)
[2021-07-17] MEDS: IV NORMAL SALINE 1000ML BAG 1,000 ML IV SCH (05:40)
[2021-07-17 06:08] LABS: BASO % 0 % (0-3); EOS # 0.1 x10^3/uL (0.0-0.7); EOS % 1 % (0-3); HEMATOCRIT 36.6 % (36.0-47.0); HEMOGLOBIN 12.2 g/dL (12.0-15.5); LYMPH # 4.1 x10^3/uL (1.0-4.8); LYMPH % 39 % (24-48); MEAN CORPUSCULAR HEMOGLOBIN 27 pg (25-35); MEAN CORPUSCULAR HGB CONC 33 g/dL (31-37); MEAN CORPUSCULAR VOLUME 80 fL (79-100); MONO # 0.6 x10^3/uL (0.0-1.1); MONO % 6 % (0-9); NEUT # 5.6 x10^3/uL (1.8-7.7); NEUT % 54 % (31-73); PLATELET COUNT 399 x10^3/uL (140-400); RED BLOOD COUNT 4.58 x10^6/uL (3.50-5.40); RED CELL DISTRIBUTION WIDTH 14.3 % (11.5-14.5); WHITE BLOOD COUNT 10.3 x10^3/uL (4.0-11.0)
[2021-07-17 06:15] LABS: CALCIUM 8.2 mg/dL (8.5-10.1); CREATININE 0.6 mg/dL (0.6-1.0); GFR 96.7; POTASSIUM 3.9 mmol/L (3.5-5.1)
[2021-07-17 07:00] VITALS: BP 122/59
[2021-07-17] MEDS: hydroCHLOROthiazide 12.5 MG CAPSULE PO SCH (08:06)
[2021-07-17] MEDS: LISINOPRIL 20 MG TABLET PO SCH (08:06)
[2021-07-17] MEDS: metFORMIN 500 MG TABLET PO SCH (08:07)
[2021-07-17] MEDS: LUBIPROSTONE 24 MCG CAPSULE PO SCH (08:07)
[2021-07-17 10:26] VITALS: BP 139/65
[2021-07-17] MEDS ORDERED: MAGNESIUM CITRATE 296 ML SOLUTION. PO PRN (11:15)
--- NOTE | 2021-07-17 12:39 | PDOC ---
[facility] PROGRESS NOTE Date of Service DOS: DATE: 07/17/21 TIME: 12:38 Chief Complaint Chief Complaint Resolving presumed UTI Metabolic cephalopathy Enteritis Noncompliance, hypertension, diabetes, hyperlipidemia. History of Present Illness History of Present Illness 07/17/2020 Patient seen and examined She seems to be back at her baseline Her family is present they are very happy of how she is doing Discussed with RN Chart reviewed We will go ahead and discharge on empiric Augmentin Vitals/I&O Vitals/I&O: Vital Signs Date Time Temp Pulse Resp B/P (MAP) Pulse Ox O2 Delivery O2 Flow Rate FiO2 07/17/21 10:26 97.8 67 16 139/65 (89) 97 Room Air 97.8 I & O 07/16/21 07/16/21 07/17/21 15:00 23:00 07:00 Intake Total 180 ml 1180 ml Output Total 1400 ml 400 ml Balance -1220 ml 1180 ml -400 ml Physical Exam General: Alert Heart: Regular rate Lungs: Clear Abdomen: Normal bowel sounds Extremities: No clubbing Skin: No rashes Labs Labs: Laboratory Tests Test 07/16/21 17:02 07/16/21 20:16 07/17/21 03:30 07/17/21 07:31 Glucose (Fingerstick) 143 mg/dL (70-99) 160 mg/dL (70-99) 121 mg/dL (70-99) White Blood Count 10.3 x10^3/uL (4.0-11.0) Red Blood Count 4.58 x10^6/uL (3.50-5.40) Hemoglobin 12.2 g/dL (12.0-15.5) Hematocrit 36.6 % (36.0-47.0) Mean Corpuscular Volume 80 fL (79-100) Mean Corpuscular Hemoglobin 27 pg (25-35) Mean Corpuscular Hemoglobin Concent 33 g/dL (31-37) Red Cell Distribution Width 14.3 % (11.5-14.5) Platelet Count 399 x10^3/uL (140-400) Neutrophils (%) (Auto) 54 % (31-73) Lymphocytes (%) (Auto) 39 % (24-48) Monocytes (%) (Auto) 6 % (0-9) Eosinophils (%) (Auto) 1 % (0-3) Basophils (%) (Auto) 0 % (0-3) Neutrophils # (Auto) 5.6 x10^3/uL (1.8-7.7) Lymphocytes # (Auto) 4.1 x10^3/uL (1.0-4.8) Monocytes # (Auto) 0.6 x10^3/uL (0.0-1.1) Eosinophils # (Auto) 0.1 x10^3/uL (0.0-0.7) Basophils # (Auto) 0.0 x10^3/uL (0.0-0.2) Sodium Level 132 mmol/L (136-145) Potassium Level 3.9 mmol/L (3.5-5.1) Chloride Level 99 mmol/L (98-107) Carbon Dioxide Level 24 mmol/L (21-32) Anion Gap 9 (6-14) Blood Urea Nitrogen 12 mg/dL (7-20) Creatinine 0.6 mg/dL (0.6-1.0) Estimated GFR (Cockcroft-Gault) 96.7 Glucose Level 123 mg/dL (70-99) Calcium Level 8.2 mg/dL (8.5-10.1) Test 07/17/21 11:52 Glucose (Fingerstick) 138 mg/dL (70-99) Assessment and Plan Assessmemt and Plan Problems Medical Problems: (1) Hypertension, uncontrolled Status: Acute Resolving presumed UTI Metabolic cephalopathy Enteritis Noncompliance, hypertension, diabetes, hyperlipidemia. Plan Discharge and I left a prescription for Augmentin See dictation Comment Review of Relevant I have reviewed the following items juan antonio (where applicable) has been applied. Medications: Current Medications Medications (Trade) Dose Ordered Sig/Sharonda Route PRN Reason Start Time Stop Time Status Last Admin Dose Admin Simvastatin (Zocor) 40 mg HS PO 07/16/21 21:00 07/16/21 21:57 Justifications for Admission Other Justification Chest pain. LOC [place] III DO Jul 17, 2021 12:39
--- NOTE | 2021-07-17 12:44 | NUR ---
SS following up with discharge planning. SS reviewed pt chart and discussed with pt RN. Pt is from home and is currently on room air. Pt on IV Rocephin. Self pay. Med Assist following. Discharge plan is currently to home when medically ready for discharge.
[2021-07-17] MEDS ORDERED: AMOX1TAB61 PO (13:53)
--- NOTE | 2021-07-17 14:45 | NUR ---
Discharge Note: MISA STALEY [address] Discharge instructions and discharge home medications reviewed with Patient and a copy given. All questions have been answered and understanding verbalized. The following instructions and handouts were given: hyponatremia, amoxicillin, magnesium citrate. Patient discharged to home with self care via wheelchair.
--- NOTE | 2021-07-17 14:48 | DS ---
DATE OF DISCHARGE: 07/17/2021 ADMISSION DIAGNOSES: Chest discomfort, emesis, abdominal pain, bloating, elevated blood pressure, possible urinary tract infection, hyponatremia, gastrointestinal symptoms. DISCHARGE DIAGNOSES: 1. Probable resolving occult infection. 2. Resolving hyponatremia. 3. Resolving enteritis. 4. Resolving hypertension. 5. History of noncompliance. 6. Diabetes. 7. Hyperlipidemia. CONSULTS: None. PROCEDURES: None. HOSPITAL COURSE: The patient is a pleasant elderly female who presented with mental status change, chest discomfort, emesis, abdominal bloating, abdominal pain and elevated blood pressure. She seemed to be encephalopathic. I thought she might have a UTI. I admitted her and gave her empiric IV antibiotics and fluids. She does have a small amount of leukocyte esterase and 5-10 white cells in her urine. One night of IV antibiotics and fluids seems to have resolved her symptoms. This morning, I saw and examined her. She is smiling. Her family is present. They want to get her home. I plan to discharge on Augmentin and encourage p.o. intake. DISPOSITION: Home. ACTIVITY: As tolerated. DIET: Regular. MEDICATIONS: Augmentin 875 p.o. b.i.d. for 5 more days and p.r.n. magnesium citrate. TOTAL TIME: [address]: David TID: [id number]
== END 2021-07-17 14:40 | disposition home or self-care (01) ==
LOC: ER 02:10 → ED HOLD 04:40 → 6 SOUTH 07:00
PROVIDERS: ADMIT Internal Medicine; ATTEND Internal Medicine
DX: R07.89 Other chest pain (principal); I10 Essential (primary) hypertension; G93.40 Encephalopathy, unspecified; K52.9 Noninfective gastroenteritis and colitis, unspecified; E87.1 Hypo-osmolality and hyponatremia; N39.0 Urinary tract infection, site not specified; E11.9 Type 2 diabetes mellitus without complications; E78.00 Pure hypercholesterolemia, unspecified; E78.5 Hyperlipidemia, unspecified; Z91.19 Patient's noncompliance with other medical treatment and regimen
CPT/HCPCS: 36415; 71046; 80048; 80053; 81001; 82962; 83605; 83690; 84484; 85025; 87086; 93005; 96361; 96374; 96375; 96376; 99285; G0378; J0696; J2270; J2405; J7030; J7040; G0379